=== PATIENT | female | born 1980 | race Two or more races ===

== ENCOUNTER 2016-09-14 07:07 | Day surgery (SDC) | payer OTHER ==
--- NOTE | 2016-08-02 17:50 | HP ---
ANDREW GUERRERO [id number] DATE OF : 1980 HISTORY OF PRESENT ILLNESS: This is a 36-year-old female referred for seven months of heavy flow with clots during her period and associated anemia. She is also requesting permanent sterilization. She is admitted for a D&C, hysteroscopy, endometrial ablation and laparoscopic tubal ligation with either rings or clips. The risks, reasons, complications, living will, alternatives, failure of surgery to relieve to symptoms and failure of tubal ligation to prevent quoted as 1%. All questions were addressed to and patient in Togolese. She was initially scheduled for all of these procedures, and then on a follow-up exam after endometrial biopsy was performed which showed normal pathology, she decided against the D&C and ablation because her periods had resolved in terms of being as heavy as before, however, on her preoperative visit she again was having heavy periods and is now requesting all of the previous procedures, which included a laparoscopic tubal ligation, D&C, hysteroscopy and endometrial ablation. She did present for a preoperative evaluation on 08/02/2016, however, the D&C and hysteroscopy had not been scheduled nor cleared with her insurance, and for this reason I discussed with her that insurance might not cover it if not preauthorized, so she decided to cancel her surgery which was scheduled for 08/03/2016 and reschedule. OB HISTORY: She is a G-3, P-3, 0-0-3. Three caesarian sections. DISPENSING OPERATOR HISTORY: Menarche 10 x 28 x 7. No history of STDs. PAST MEDICAL HISTORY: Includes: 1. Hypertension. 2. Anemia. MEDICATIONS: Includes: 1. Iron supplementation. 2. Hydroxyzine. 3. Lisinopril. PAST SURGICAL HISTORY: Caesarian section x 3. SOCIAL HISTORY: Negative. ALLERGIES: Negative. FAMILY HISTORY: Prostate cancer in her father. PHYSICAL EXAMINATION: GENERAL: A healthy female in no acute distress. HEENT: Normal. NECK: Supple. Thyroid not palpable. BREASTS: Soft. No masses. HEART: Regular sinus rhythm. No murmurs. LUNGS: Clear. ABDOMEN: Benign. PELVIC: External genitalia healthy. Vagina healthy. Cervix pink and nontender. Uterus normal size and anteverted. Adnexa negative. IMPRESSION: 1. Multiparity 2. Abnormal uterine bleeding. PLAN: D&C, hysteroscopy, endometrial ablation and laparoscopic tubal ligation with rings.
--- NOTE | 2016-09-13 12:17 | HP ---
Genny Rosales : 1980 HISTORY OF PRESENT ILLNESS: This is a 36-year-old female admitted with a history of heavy flow of menses with clots for about 10 months duration. She also had an associated anemia. She is also requesting permanent sterilization. She is admitted for a dilation and curettage, hysteroscopy, endometrial ablation, and laparoscopic tubal ligation with Filshie clips. Risks, reasons, complications, living will, alternatives, failure rate all discussed and laypersons terms and in [place]ik and all questions answered. OB HISTORY: 3, para 3-0-0-3, three sections. 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 Sexually transmitted diseases negative. PAST MEDICAL HISTORY: Positive for hypertension and anemia. MEDICATIONS: Include: 1. Iron supplementation. 2. Lisinopril. 3. Hydroxyzine. PAST SURGICAL HISTORY: section x3. ALLERGIES: Negative. SOCIAL HISTORY: Nonsmoker, nondrinker. FAMILY HISTORY: Prostate cancer father. PHYSICAL EXAMINATION: GENERAL: Healthy female in no acute distress. HEENT: Normal. NECK: Supple. Thyroid not palpable. BREAST: Soft, no masses. HEART: Regular sinus rhythm, no murmurs. LUNGS: Clear. ABDOMEN: Benign. PELVIC: External genitalia healthy. Vagina healthy. Cervix pink and nontender. Uterus normal size and anteverted. Adnexa negative. IMPRESSION: 1. Menorrhagia. 2. Iron deficiency anemia. 3. Multiparity. PLAN: Dilation and curettage, hysteroscopy, endometrial ablation, and laparoscopic tubal ligation. Her pap smear done in May was normal and she did have endometrial biopsy which showed the benign secretory endometrium. JOB: [id number]
[~2016-09-14 07:07] MED LIST: IV START KIT ONE; LACTATED RINGERS 1,000 ML ONE
[2016-09-14] MEDS ORDERED: LIDOCAINE 1% 2 ML VIAL ID PRN ×2 (07:15→13:34)
[2016-09-14] MEDS ORDERED: LACTATED RINGERS 1,000 ML IV SCH ×3 (07:15→13:45)
[2016-09-14] MEDS ORDERED: IV START KIT ONE (07:55)
[2016-09-14] MEDS ORDERED: FENTANYL 5 ML ONE (08:26)
[2016-09-14] MEDS ORDERED: MIDAZOLAM HCL 1 MG/ML 2ML VIAL ONE (08:26)
[2016-09-14] MEDS ORDERED: LIDOCAINE 1% (PRES FREE) 30 ML VIAL ONE (08:47)
[2016-09-14] MEDS ORDERED: SODIUM CHLORIDE 0.9% FLUSH 10 ML ONE (08:47)
[2016-09-14] MEDS ORDERED: KETAMINE HCL UD SYRINGE 100 MG/2 ML IV ONE (09:09)
[2016-09-14] MEDS ORDERED: ONDANSETRON 4 MG/2ML 2 ML VIAL ONE (09:12)
[2016-09-14] MEDS ORDERED: ROCURONIUM BROMIDE 10 MG/ML DOSE IV ONE (09:12)
[2016-09-14] MEDS ORDERED: DIPHENHYDRAMINE HCL 50 MG/1 ML VIAL ONE (09:12)
[2016-09-14] MEDS ORDERED: LIDOCAINE 2% (MULTI DOSE) 10 ML VIAL ONE (09:12)
[2016-09-14] MEDS ORDERED: PROPOFOL 20 ML IV ONE (09:12)
[2016-09-14] MEDS ORDERED: DEXAMETHASONE SOD PHOS 4 MG/1 ML VIAL ONE (09:12)
[2016-09-14] MEDS ORDERED: GLYCOPYRROLATE 0.2 MG/ML 1ML VIAL ONE (09:12)
[2016-09-14] MEDS ORDERED: NEOSTIGMINE METHYLSULFATE 1 MG/ML DOSE ONE (09:12)
[2016-09-14] MEDS ORDERED: FENTANYL 100 MCG/2 ML VIAL IV PRN (09:26)
[2016-09-14] MEDS ORDERED: ATROPINE SULFATE 0.4 MG/1 ML VIAL IV PRN (09:26)
[2016-09-14] MEDS ORDERED: HYDROMORPHONE HCL 1 MG/ML SYRINGE IV PRN (09:26)
[2016-09-14] MEDS ORDERED: PROMETHAZINE HCL 25 MG/ML VIAL IM PRN (09:26)
[2016-09-14] MEDS ORDERED: NALOXONE HCL 0.4 MG/ML VIAL IV PRN (09:26)
[2016-09-14] MEDS ORDERED: ONDANSETRON 4 MG/2ML 2 ML VIAL IV PRN (09:26)
[2016-09-14] MEDS ORDERED: KETOROLAC TROMETHAMINE 30 MG/ML 1 ML VIAL ONE (10:11)
--- NOTE | 2016-09-14 10:30 | PCMBPN ---
Brief Post Op Note: Date of Procedure: 09/14/16 Start Time: Preoperative Diagnosis: 1. abnormal uterine bleeding, multiparity Postoperative Diagnosis: 1. abnormal uterine bleeding, multiparity, pelvic adhesions Procedure: laparoscopic tubal ligation with fishie clips, endometrial ablation, fractional d&c, hysteroscopy Surgeon: Ronnie Hair Assist: Anesthesia: mr dawson, general Findings: external genitalia healthy, cervix pink, uterus normal size and anteverted, adnexa negative, vagina healthy, cervical length 3cm, uterine cavity width 2.6cm, uterine cavity length 4.5 cm, scanty curettings, normal hysteroscopic findings, both ovaries normal with small ovulatory cyst on left ovary, both fallopian tubes normal, pelvic adhesions, uterus normal size and anteverted Condition: stable Complications: none IV Fluids: mLs of LR Urine Output: 500 mLs Estimated Blood Loss: 10 mLs Tourniquet Time: N/A Specimens: endocervical and endometrial curettings Implants: [] Drains: [N/A] patient tolerated procedure well and was returned to recovery room in stable condition.
[2016-09-14] MEDS ORDERED: IBUPROFEN 800 MG TABLET PO PRN (10:31)
[2016-09-14] MEDS ORDERED: OXYCODONE/ACETAMINOPHEN 5/325 MG TABLET PO PRN (10:31)
[2016-09-14] MEDS ORDERED: OXYCODONE HCL 5 MG TABLET PO PRN (10:31)
[2016-09-14] MEDS ORDERED: FENTANYL 100 MCG/2 ML VIAL ONE (10:44)
--- NOTE | 2016-09-14 11:10 | OP ---
Genny Rosales : 1980 [id number] NAME OF OPERATION: Laparoscopic tubal ligation with Filshie clips, endometrial ablation, hysteroscopy, and fractional dilation and curettage. PREOPERATIVE DIAGNOSES: Abnormal uterine bleeding and multiparity. POSTOPERATIVE DIAGNOSES: Abnormal uterine bleeding and multiparity, pelvic adhesions. ANIMAL HUSBANDRY PROFESSOR: Dr. Ronnie Hair ANESTHESIA: Mr. Blood, General PROCEDURE: Begins with patient under general anesthesia and she was placed in the lithotomy position. The abdomen were prepared with chloraprep and draped in usual manner. Betadine was used for the vaginal prep. After timeout was performed exam under anesthesia revealed the external genitalia healthy. The vagina was healthy. The cervix pink. Uterus normal size and anteverted. Adnexa negative. The bladder had been emptied of 500 mL of clear yellow urine prior to the exam. A duckbill speculum was inserted into the vagina gently. The anterior lip of the cervix was grasped with a single prong tenaculum. The uterus was sounded to 7.5 cm and then a uterine manipulator was inserted. The speculum was then removed along with the single prong tenaculum. The laparoscopic tubal ligation was next performed. The skin was grasped lateral to the umbilicus with single prong tenaculums and then a knife was used to make an incision in the subumbilical area and then a Veress needle was inserted. The opening pressure was 8 mmHg and approximately 3 liters of carbon dioxide were instilled creating an adequate pneumoperitoneum by percussion. The Veress needle had been tested with normal saline prior to using the carbon dioxide gas. With a adequate pneumoperitoneum the Veress needle was removed. The umbilical incision was extended laterally and then the laparoscopic trocar was inserted uneventfully. The laparoscope was then placed and findings included a normal sized anteverted uterus, both ovaries and tubes appeared normal. There was a small ovulatory cyst on the left ovary and there were filmy adhesions present in the anterior portion of the uterus near the previous uterine scar for C-sections, photographs of this were taken. A second incision was made to the right of midline in the lower abdomen superior to the pfannenstiel incision and under direct visualization a additional trocar was inserted. The Filshie clip applicator was then placed through the second trocar sheath and then the right Fallopian tube was identified down to its fimbriated portion and the Filshie clip was applied. Turning the Filshie clip left and right before applying to make sure that the full thickness of the tube was in fact clipped. This procedure was repeated on the opposite tube making sure to indentify down to its fimbriated portion. Photographs of this were taken. There was complete hemostasis after application of the clips. The Filshie clip applicator was then removed and then second trocar was removed. The area was inspected through the laparoscope. There was no bleeding noted and then laparoscope was removed once it was ascertained that there was complete hemostasis and the laparoscopic trocar was removed. The skin defects were closed with 3-0 Vicryl interrupted sutures and then a total of 10 mL were placed at the superior and inferior incisions using 1% lidocaine. The final portion of the surgery included the endometrial ablation, dilation and curettage, and hysteroscopy. The uterine manipulator was removed. A duckbill speculum was then reinserted into the vagina. The anterior lip of the cervix was grasped with a single prong tenaculum. Curettage from the endocervical canal produced scanty amounts of mucous and blood. Next, the uterus was sounded to a total of 7.5 cm. Cervical length was 3 cm. Cavity length was 4.5 cm. The cervix was then gradually dilated with Tara dilators and then curettage produced scanty curettings and small blood clot. Hysteroscopic exam was next performed using normal saline. Findings were normal. There was a 0 deficit. Photographs were taken. Lastly, the endometrial ablation was performed. The endometrial ablator using NovaSure was inserted gently into the uterine cavity. Using the previous measurements which was a total sounding length of 7.5 cm, a cervical length of 3 cm, and an endometrial cavity length of 4.5 cm. The cavity width was determined to be 2.6 cm and then with the NovaSure in place it was rotated left and right and then forward and back and then the procedure was initiated. The power was 64 and the time was 1 minute 50 seconds. The procedure was performed uneventfully and then the NovaSure device was collapsed and removed intact. There was cauterized tissue noted on the NovaSure instrument after removal from the uterus. The single prong tenaculum was removed. There was one bleeding point noted on the cervix which was cauterized with Silver nitrate cautery resulting in complete hemostasis and then with complete hemostasis and instrument and sponge correct the operating was terminated. Estimated blood loss of the entire procedures were 10 mL. Sponge and instrument count and complete hemostasis were correct. The patient tolerated the procedure well and was returned to recovery room in stable condition. FINAL DIAGNOSIS: As above. JOB: [id number]
[2016-09-14] MEDS ORDERED: OXYCODONE/ACETAMINOPHEN 5/325 MG TABLET ONE (11:15)
--- NOTE | 2016-09-14 11:27 | DS ---
Genny Rosales A 36-year-old female who underwent a fractional dilation and curettage, hysteroscopy, endometrial ablation, and laparoscopic tubal ligation with Filshie clips. She tolerated all those procedure well and was sent home in good condition with Percocet and Motrin. Advised office visit in one week and no intercourse for approximately two weeks. On office visit we will review the pathology and also removed the sutures. These instructions were given to the patient prior to surgery. She was sent home in good condition. Her beta HCG test was negative. FINAL DIAGNOSIS: As above. JOB: [id number]
--- NOTE | 2016-09-18 12:34 | SURGPATH ---
[facility] [address] [place] [id number] Patient Name: ANDREW GUERRERO MR#: [id number] : 1980 Gender: F Specimen #: [id number] Collected: 09/14/2016 Received: 09/17/2016 Reported: 09/18/2016 Submitting Phys: DEANDRE REY I Copy To Phys: [facility] JO[facility] F LYN[facility] Clinical History / Pre-Operative Diagnosis: Menorrhagia Specimen Source / Surgical Procedure Performed: #1 endocervical curetting, #2 endometrial curetting Interpretation: 1. ENDOCERVIX, CURETTINGS: - UNREMARKABLE CERVICAL TISSUE 2. ENDOMETRIUM, CURETTINGS: - SHEDDING ENDOMETRIUM Electronically Signed Out Malcolm Lainez M.D. Gross Description: 1. The specimen is received in formalin labeled with the patient's name and "endocervix". The specimen consists of a 1.0 x 0.3 x 0.1 cm aggregate of brown soft tissue or blood. Submitted in toto in one cassette. 2. The specimen is received in formalin labeled with the patient's name and "endometrial curetting the specimen consists of a 1.5 x 1.5 x 0.5 cm aggregate of red soft tissue or blood. Submitted in toto in one cassette. FRANKIE Salomon Microscopic Description: 1. Levels contain blood and multiple small fragments of the cervical and ectocervical tissue. Glandular dysplasia and malignancy are not present. Chronic inflammation is present in the attached stroma. 2. Levels contain abundant blood and multiple small fragments of endometrium with features consistent with shedding. Hyperplasia and malignant features are not present. 1: [id number] 2: 00583 N92.0
== END 2016-09-14 12:35 | disposition home or self-care (01) ==
LOC: SDC 07:07
PROVIDERS: ATTEND Obstetrics & Gynecology
PROC: 0U5B8ZZ Destruction of Endometrium, Via Natural or Artificial Opening Endoscopic (ICD-10-PCS; principal; 2016-09-14)
PROC: 0UDB8ZX Extraction of Endometrium, Via Natural or Artificial Opening Endoscopic, Diagnostic (ICD-10-PCS; 2016-09-14)
PROC: 0UL74CZ Occlusion of Bilateral Fallopian Tubes with Extraluminal Device, Percutaneous Endoscopic Approach (ICD-10-PCS; 2016-09-14)
DX: N92.0 Excessive and frequent menstruation with regular cycle (principal); Z30.2 Encounter for sterilization; N73.6 Female pelvic peritoneal adhesions (postinfective); N83.292 Other ovarian cyst, left side; I10 Essential (primary) hypertension; D50.9 Iron deficiency anemia, unspecified
CPT/HCPCS: 58563; 58671; J1200; J3010 ×2; J1100; A9270; J1885; J2250; J2001 ×2; J2405; J7120